=== PATIENT | male | born 1980 | race Caucasian/White ===

== ENCOUNTER 2019-06-11 20:17 | Emergency (ER) | payer BC ==
[~2019-06-11] VITALS: Ht 157.5 cm; Wt 72.6 kg
[2019-06-11 20:25] VITALS: BP_SYST 125
[2019-06-11 20:41] VITALS: BP_SYST 125
== END 2019-06-11 20:41 | disposition home or self-care (01) ==
LOC: SED 20:17
DX: H66.92 Otitis media, unspecified, left ear (principal); R03.0 Elevated blood-pressure reading, without diagnosis of hypertension
CPT/HCPCS: 82962; 99283